=== PATIENT | female | born 1970 | race Caucasian/White ===

== ENCOUNTER 2022-10-09 07:36 | Emergency (ER) | payer BC ==
[2022-10-09 07:45] VITALS: BP 150/84; PULSE 81
[2022-10-09 08:29] LABS: PTT,PARTIAL THROMBOPLSTIN TIME 27.9 SEC (23.2-32.3)
== END 2022-10-09 09:40 | disposition home or self-care (01) ==
LOC: CC.ED 07:36
DX: S16.1XXA Strain of muscle, fascia and tendon at neck level, initial encounter (principal); S20.211A Contusion of right front wall of thorax, initial encounter; S00.03XA Contusion of scalp, initial encounter; J45.909 Unspecified asthma, uncomplicated; E66.9 Obesity, unspecified; Z68.41 Body mass index [BMI] 40.0-44.9, adult; Z91.048 Other nonmedicinal substance allergy status; Z79.899 Other long term (current) drug therapy; Z79.82 Long term (current) use of aspirin; Z79.84 Long term (current) use of oral hypoglycemic drugs; Z90.710 Acquired absence of both cervix and uterus; W00.9XXA Unspecified fall due to ice and snow, initial encounter; Y92.009 Unspecified place in unspecified non-institutional (private) residence as the place of occurrence of the external cause
CPT/HCPCS: 36415; 70450; 71101-RT; 72125; 80053; 85025; 85610; 85730; 99284